=== PATIENT | female | born 1995 | race Caucasian/White ===

== ENCOUNTER 2017-12-04 19:06 | Emergency (ER) | payer OTHER ==
[2017-12-04 19:13] VITALS: BP 99/62; PULSE 90; TEMP 98.7; BMI 26.5
--- NOTE | 2017-12-04 20:37 | PDOC ---
History of Present Illness - General History Source: Patient Exam Limitations: No Limitations <Patrice Doran - Last Filed: 12/04/17 20:40> - History of Present Illness Initial Comments: Patient is a 22 year old female who presents to the ER s/p right hand laceration. Patient states that she was carving pumpkins with a knife when she accidentally sliced her right palm near her thumb. She states that it was bleeding profusely when she sliced it but it has since stopped. She denies any numbness or tingling in her extremities. Allergies: NKDA <Concha Pineda - Last Filed: 12/04/17 21:06> - General Chief Complaint: Laceration Stated Complaint: RT HAND LAC Time Seen by Provider: 12/04/17 19:10 Past History - Past Medical History COPD: No - Suicide/Smoking/Psychosocial Hx Smoking History: Never smoked <Patrice Doran - Last Filed: 12/04/17 20:40> <Concha Pineda - Last Filed: 12/04/17 21:06> - Past Medical History Allergies/Adverse Reactions: Allergies Allergy/AdvReac Type Severity Reaction Status Date / Time No Known Allergies Allergy Unverified 12/04/17 19:07 Home Medications: Ambulatory Orders Multivitamins [Tab-A-Vit -] 1 tab PO DAILY 12/04/17 Review of Systems - Review of Systems Comments:: GENERAL/CONSTITUTIONAL: No fever or chills. No weakness. HEAD, EYES, EARS, NOSE AND THROAT: No change in vision. No ear pain or discharge. No sore throat. CARDIOVASCULAR: No chest pain or shortness of breath. RESPIRATORY: No cough, wheezing, or hemoptysis. GASTROINTESTINAL: No nausea, vomiting, diarrhea or constipation. GENITOURINARY: No dysuria, frequency, or change in urination. MUSCULOSKELETAL: No joint or muscle swelling or pain. No neck or back pain. SKIN: +right hand laceration. NEUROLOGIC: No headache, vertigo, loss of consciousness, or change in strength/ sensation. ENDOCRINE: No increased thirst. No abnormal weight change. HEMATOLOGIC/LYMPHATIC: No anemia, easy bleeding, or history of blood clots. ALLERGIC/IMMUNOLOGIC: No hives or skin allergy. <Concha Pineda - Last Filed: 12/04/17 21:06> *Physical Exam - Vital Signs Last Vital Signs Temp Pulse Resp BP Pulse Ox 98.7 F 90 18 99/62 99 12/04/17 19:08 12/04/17 19:08 12/04/17 19:08 12/04/17 19:08 12/04/17 19:08 <Patrice Doran - Last Filed: 12/04/17 20:40> - Vital Signs Last Vital Signs Temp Pulse Resp BP Pulse Ox 98.7 F 90 18 99/62 99 12/04/17 19:08 12/04/17 19:08 12/04/17 19:08 12/04/17 19:08 12/04/17 19:08 - Physical Exam Comments: GENERAL: Awake, alert, and fully oriented, in no acute distress HEAD: No signs of trauma EXTREMITIES: ROM --> Full extension and flexion. 2+ radial pulses.< 2 seconds capillary refill. Strength and sensation intact in median, radial, and ulnar nerve. Able to ulnar and radial deviate. No edema. No clubbing or cyanosis. No cords, erythema, or tenderness NEUROLOGICAL: Cranial nerves II through XII grossly intact. Normal speech, normal gait SKIN: Approximately 4cm superficial knife laceration to the palmar surface of the right hand. Hand was examined on a bloodless field. <Concha Pineda - Last Filed: 12/04/17 21:06> Procedures - Laceration/Wound Repair Right Hand Wound Length: 2.6 to 5.0 cm Wound Explored: clean Wound's Depth, Shape: superficial Irrigated w/ Saline: Yes Betadine Prep: Yes Anesthesia: 1% Lidocaine Amount of Anesthetic (ccs): 3 Wound Debrided: minimal Wound Repaired With: Sutures Suture Size/Type: 4:0 Number of Sutures: 8 Layer Closure: No Splint Applied: Yes Type of Splint Applied: Volar splint applied <Patrice Doran - Last Filed: 12/04/17 20:40> Medical Decision Making - Medical Decision Making 12/04/17 20:42 A portion of this note was documented by scribe services under my direction. I have reviewed the details of the note, within reason, and agree with the documentation with the following case summary and management plan written by me. Patient treated in the ED. Nursing notes are reviewed and incorporated into the medical decision-making. Vital signs reviewed. Peripheral IV access obtained by the nurse, laboratory studies are drawn and sent, reviewed and interpreted by myself. Vital Signs Temp Pulse Resp BP Pulse Ox 98.7 F 90 18 99/62 99 12/04/17 19:08 12/04/17 19:08 12/04/17 19:08 12/04/17 19:08 12/04/17 19:08 22-year-old female no medical history, right-hand dominant, presents with a laceration to right hand. Patient reports tentanus booster with the last 5 years. The patient states that she was carving a pumpkin with a clean knife when she actually cut her right hand. She sustained a superficial laceration to the palmar surface of her hand. There is no evidence of neurovascular injury. There were no tendon injuries on my examination. Patient has full strength and sensation throughout her right hand. Wound was soaked and irrigated with Betadine and normal saline. Was additionally irrigated with 500 mL of normal saline. Approximately 3 cc of 1% lidocaine without epinephrine injected locally with excellent anesthesia control. 8 4-0 nylon interrupted sutures placed with excellent approximation. Wound covered with a nonadherent dressing and placed in a volar splint. Patient is instructed to return to the ER in 7 days for suture removal. Patient is advised to keep the splint on. This will help with healing. Fever and scar precautions given. She verbalized understanding agrees with the plan. She will go home with her partner. I discussed the physical exam findings, ancillary test results and final diagnoses with the patient. I answered all of the patient's questions. The patient was satisfied with the care received and felt comfortable with the discharge plan and treatment plan. The patient will call their primary care physician within 24 hours to arrange follow-up and will return to the Emergency Department with any new, persistant or worsening symptoms. <Patrice Doran - Last Filed: 12/04/17 20:40> *DC/Admit/Observation/Transfer - Discharge Dispostion Decision to Admit order: No <Patrice Doran - Last Filed: 12/04/17 20:40> <Concha Pineda - Last Filed: 12/04/17 21:06> Diagnosis at time of Disposition: Laceration - Discharge Dispostion Disposition: HOME Condition at time of disposition: Stable - Referrals Referrals: ON STAFF,NOT [Primary Care Provider] - Rosales Goldman MD [Staff Physician] - - Patient Instructions Printed Discharge Instructions: DI for Laceration Repair Additional Instructions: You have 8 sutures in your right hand. Please wear the splint as much as possible. This will help with healing. Elevate the arm as much as you can. To minimize scarring, please minimize sun exposure. The sutures should be removed in 7-10 days. Please return to the ER or to your doctor for suture removal. If you have uncontrolled pain or high fevers, please return to the ER for further rash. - Post Discharge Activity Forms/Work/School Notes: Back to School
== END 2017-12-04 20:49 | disposition home or self-care (01) ==
LOC: FER 19:06
PROC: 0HQFXZZ Repair Right Hand Skin, External Approach (ICD-10-PCS; principal; 2017-12-04)
DX: S61.411A Laceration without foreign body of right hand, initial encounter (principal); W26.0XXA Contact with knife, initial encounter; Y93.89 Activity, other specified; Y92.9 Unspecified place or not applicable
CPT/HCPCS: 99282-25

== ENCOUNTER 2020-03-20 10:28 | Emergency (ER) | payer OTHER | END 2020-03-20 11:53 | disposition home or self-care (01) | LOC: JVIRT 10:28 | DX: U07.1 COVID-19 (principal) | CPT/HCPCS: C9803; G2012-GT; U0003 ==

== ENCOUNTER 2022-02-27 12:10 | Emergency (ER) | payer BC, OTHER ==
[2022-02-27] MEDS ORDERED: KETOROLAC TROMETHAMINE 30 MG/1 ML VIAL IVPUSH ONE (12:17)
[2022-02-27] MEDS ORDERED: SODIUM CHLORIDE 1,000 ML IV STA (12:18)
[2022-02-27] MEDS ORDERED: ONDANSETRON 4 MG/2 ML VIAL IVPB ONE (12:18)
[2022-02-27] MEDS ORDERED: ONDANSETRON 4 MG/2 ML VIAL ONE (12:21)
[2022-02-27] MEDS ORDERED: KETOROLAC TROMETHAMINE 30 MG/1 ML VIAL ONE (12:22)
[2022-02-27 12:35] VITALS: BP 106/64; PULSE 55; RESP 18; TEMP 98.7; BMI 24.7
== END 2022-02-27 14:40 | disposition home or self-care (01) ==
LOC: FER 12:10
PROC: 3E033GC Introduction of Other Therapeutic Substance into Peripheral Vein, Percutaneous Approach (ICD-10-PCS; principal; 2022-02-27)
DX: G43.009 Migraine without aura, not intractable, without status migrainosus (principal)
CPT/HCPCS: 99284-25